=== PATIENT | male | born 1975 | race African-American/Black ===

== ENCOUNTER 2021-09-15 12:26 | Emergency (ER) | payer OTHER ==
[~2021-09-15] VITALS: Ht 190.5 cm; Wt 181.4 kg
--- NOTE | 2021-09-15 12:44 | NUR ---
SHARON FLORES FROM [facility] ,VERBALIZED HE WANTS TO HURT HIMSELF, NO PLAN AT THIS TIME. PT SENT TO ER BED 12 WITH 1:1 SITTER
[2021-09-15 13:23] LABS: BASOPHILS % (AUTO) 0.5 % (0.0-2.0); EOSINOPHILS % (AUTO) 1.1 % (0.0-6.0); HEMATOCRIT 42 % (39-51); HEMOGLOBIN 13.4 g/dL (13.5-17.5); LYMPHOCYTES # (AUTO) 1.5 K/uL (0.8-4.8); LYMPHOCYTES % (AUTO) 38.2 % (20.0-44.0); MEAN CORPUSCULAR HGB CONC 32 g/dl (31.0-36.0); MEAN CORPUSCULAR VOLUME 91 fL (80-96); MONOCYTES # (AUTO) 0.3 K/uL (0.1-1.30); MONOCYTES % (AUTO) 8.4 % (2.0-12.0); NEUTROPHILS % (AUTO) 51.8 % (43.0-81.0); PLATELET COUNT (AUTO) 169 K/uL (150-450); RED BLOOD CELL COUNT(AUTO) 4.59 MIL/uL (4.5-6.0); WHITE BLOOD COUNT (AUTO) 3.9 K/uL (4.3-11.0)
[2021-09-15 13:38] LABS: CARBON DIOXIDE 28 mmol/L (21-32); CHLORIDE 103 mmol/L (98-107); CREATININE 1.1 mg/dL (0.6-1.3); GLUCOSE 90 mg/dL (74-106); POTASSIUM 4.4 mmol/L (3.5-5.1); SODIUM SERUM 138 mmol/L (136-145); UREA NITROGEN, BLOOD 13 mg/dL (7-18)
[2021-09-15 13:45] LABS: ALANINE AMINOTRANSFERASE 23 U/L (12-78); ALBUMIN 3.6 g/dL (3.4-5.0); ALCOHOL, BLOOD < 3 mg/dL (0-0); ALKALINE PHOSPHATASE 73 U/L (46-116); ASPARTATE AMINOTRANSFERASE 18 U/L (15-37); BILIRUBIN,DIRECT 0.1 mg/dL (0.0-0.2); BILIRUBIN,TOTAL 0.7 mg/dL (0.2-1.0); TOTAL PROTEIN, SERUM 7.4 g/dL (6.4-8.2)
[2021-09-15 13:50] LABS: ACETAMINOPHEN 0 ug/ml (10-30)
[2021-09-15 14:27] LABS: BILIRUBIN,URINE NEGATIVE (NEGATIVE); COLOR,URINE YELLOW (YELLOW); LEUKOCYTE ESTERASE ,URINE NEGATIVE (NEGATIVE); NITRITE, URINE POSITIVE (NEGATIVE); PH,URINE 6.5 (5.0-8.0); PROTEIN,URINE NEGATIVE (NEGATIVE); UGLUCOSE NEGATIVE (NEGATIVE); UROBILINOGEN,URINE 0.2 EU/dL (0.2)
[2021-09-15] MEDS ORDERED: CEFTRIAXONE 1 G in IV D5W 50 ML IV ONE (15:00)
[2021-09-15 15:01] LABS: BACTERIA,URINE None seen /HPF (None Seen); RBC,URINE NONE SEEN /HPF (0-2); SQUAMOUS EPITHELIAL CELL,UR 0-2 /HPF (None Seen); WBC,URINE NONE SEEN /HPF (0-3)
[2021-09-15] MEDS ORDERED: CEPHALEXIN MONOHYDRATE 500 MG CAPSULE PO ONE ×2 (15:30→15:34)
--- NOTE | 2021-09-15 16:10 | NUR ---
[facility] Hospital referral: ANNETTA called [facility] [address] [place] [address]; Unit TEL: [phone] and spoke to Helena from intake and she stated to fax clinicals to Intake and they need PCR . ANNETTA faxed clinicals and notified sonido in ED that PCR is required for admission.
--- NOTE | 2021-09-15 16:58 | NUR ---
ANNETTA received call from Mamta Smith who stated the pt. was not accepted. ANNETTA called and spoke to chucking and boring machine operator, Felicita who is agreeable to evaluate this patient. ANNETTA notified RNBrittany.
[2021-09-15] MEDS ORDERED: RIVAROXABAN 15 MG TABLET PO SCH ×2 (17:00→20:00)
--- NOTE | 2021-09-15 18:10 | NUR ---
Patient is no longer on a hold. Patient needs assistance with linkage to senior care and possbile housing. patient's will meet with horticultural farmworker in the morning to get assistance with senior care and housing. Patient's clinicals have also being faxed to [facility] for possible admission. Patient is free to go if he does not want any of the options provided.
--- NOTE | 2021-09-15 21:48 | NUR ---
COVID ANTIGEN SWAB COLLECTED AND SENT TO LAB
--- NOTE | 2021-09-15 23:09 | NUR ---
CALL FROM ANISA THORNE. UNABLE TO ACCEPT PT.
[2021-09-16] MEDS ORDERED: ACETAMINOPHEN 325 MG TABLET ONE ×2 (05:59→11:00)
[2021-09-16] MEDS ORDERED: ACETAMINOPHEN 325 MG TABLET PO ONE ×2 (06:00→11:00)
--- NOTE | 2021-09-16 06:00 | NUR ---
PT AMBULATORY TO RESTROOM WITH CANE; STEADY GAIT NOTED. ADLS DONE.
--- NOTE | 2021-09-16 06:04 | NUR ---
PT COMPLAINED OF ONEIL LEG PAIN. TYLENOL GIVEN ORDERED.
--- NOTE | 2021-09-16 08:00 | NUR ---
THE PATIENT IS RECEIVED IN ER BED #12. THE PATIENT IS ALERT AND ORIENTED X4. DENIES PAIN. IN ROOM AIR AND DENIES SOB. RESPIRATION REGULAR AND UNLABORED. THE PATIENT STATED HE WANTS TO HARM HIMSELF WITH NO PLAN. DENIES HI. DENIES HAVING HALLUCINATION. SITTER AT THE BEDSIDE.
--- NOTE | 2021-09-16 09:12 | NUR ---
THE PATIENT IS ALERT AND ORIENTED X4. DENIES HAVING SI OR HI. DENIES HAVING HALLUCINATIONS. STATES HE WANTS TO SEE NUCLEAR ENGINEERING TECHNICIAN FOR ALF PLACEMENT.
[2021-09-16] MEDS ORDERED: ALBU18HF2 INH (10:31)
[2021-09-16] MEDS ORDERED: ALBUTEROL FS 2.5 MG/0.5 ML VIAL.NEB ONE (10:47)
[2021-09-16] MEDS ORDERED: ALBUTEROL SULFATE 8 GM HFA.AER.AD IH ONE (11:00)
[2021-09-16] MEDS ORDERED: IBUPROFEN 600 MG TABLET PO ONE (11:00)
[2021-09-16] MEDS ORDERED: IBUPROFEN 600 MG TABLET ONE (11:01)
--- NOTE | 2021-09-16 11:38 | NUR ---
PATIENT WAS PROVIDED WITH RESOURCES FROM SOCIAL WORKERS, PROVIDED WITH LUNCH, AND DISCHARGED IN STABLE CONDITION.
[2021-09-16 11:43] VITALS: BP 138/84
--- NOTE | 2021-09-16 15:14 | NUR ---
SS Note: Pt. Is a 45-year-old Black male who demonstrates no insight to the reason for hospitalization. Pt. was living at transitional housing facility and got into argument with the residents was put on a 5150 hold by [employer]. Pt. was oriented x4, alert, and not cooperative. During interview, pt. appeared groomed, pt.s speech was at a normal rate and pt.s mood was irritable. Pt. reported no substance abuse but per EMR, pt. was positive for Amphetamine and Marijuana. Pt. denies auditory hallucinations, visual hallucinations, paranoia, or delusions. Pt. is manipulative and tend to make suicidal claim and yet told Felicita GALAN I never was suicidal." shield runner, Felicita, came to evaluate pt. and clinician determined he did not meet criteria for a psychiatric hold and the hold was broken. Pt. reports he wants to be referred to a mcfp to get section 8 housing. Pt. keeps threatening that he will hurt himself if housing or a referral for section 8 resources is not provided to him. Per clinician note, during evaluation pt. reported he did not want to hurt himself and never was suicidal ANNETTA contacted [facility] [[phone]] and spoke with Kwesi from intake there. Per Kwesi, pt. could come for intake before 1pm. Kwesi stated that pt. could come for an intake via taxi, but a mcfp was not guaranteed today. Patient was informed of this prior to discharge. Plan: ANNETTA provided available resources and pt. accepted. Upon discharge, pt. will be going to [facility] [[facility] [address] [place] [address]. Tele: [phone]] via taxi for intake. Kwesi from [facility] was informed and was expecting the patient. Resources Provided: Winter Shelters: SPA 2 | [facility] Felixder: [facility] [place] Address: Confidential (call for location ) Population Served: Coed # of Beds: 57 SPA 4 | [facility] Provider: Home at Last Address: [address] [address] # of Beds: 49 Population Served: Coed SPA 6 | [facility] Provider: Home at Last Address: [address] [facility] [address] # of Beds: 49 Population Served: Kathe Valdez [facility]om[facility] Half-Way Provider: Brayan COLEY Address: [address] [facility] [address] # of Beds: 20 Population Served: Women [facility] Facility Provider: Home at Last Address: [address] [facility] [address] # of Beds: 30 Population Served: Women SPA 8 | [facility] Provider: [facility] [place] Address: [address] [address] # of Beds: 65 Population Served: Kathe Year-round shelters: [place] [address] [place] [place] [address] ; [facility] [place] [address] [place] [address]; [place] [facility] Ehanccw[address]8 [facility] [id number] Winter Shelters: Vane [place] Provider: [facility] Address: [address] [facility], [address] # of Beds: 47 Population Served: Coed SPA 6 | [facility] Lizbeth Ponce [place] Provider: Home at Last Address: [address], [address] # of Beds: 66 Population Served: Kathe [place] Provider: First to Serve Address: [address] [facility], [address] # of Beds: 56 Population Served: Mariannd Sina [place] Provider: [facility] Address: [address] [facility], [address] # of Beds: 49 Population Served: Coed SPA 8 | [facility] Provider: First to Serve Address: [address] [facility], [address] # of Beds: 37 Population Served: Coed Hygiene: [facility]: [address] [address]. [place] ; [facility] [address] [facility] ; [facility] [address] [place] . Food Resources: [place] [facility] at [facility]- [address] [place]; Meet Each Need with Dignity ([facility]) [address] [facility]ron [place]; [facility] Food Pantry [address] [facility]; [facility] [address] [facility]. Mental Health resources provided: [facility] [address] [place], [place] [id number] ; [facility] [address] [facility] [address], [place], [place] [id number] ; [facility] [address] [facility] [place], [place] [phone] ; [facility] [address] [place], [place] [id number] Healthcare Clinics: [facility] [address] [facility], [address] [place]. [place] ; [facility] [address] [facility] [address] [place] [address]; [facility] [address] [facility]. [place] [phone] Counseling--Outpatient [facility] [address] [facility], [place] [address] (Specializes in in-depth psychotherapy for emotional distress: anxiety, depression, interpersonal conflicts, life transitions, childhood abuse) [facility] [address] [place] [address] (Assist with solving problem marital difficulties, separation & divorce, aging parents, & grief, chronic & terminal illness) [facility] [address] [place] [address] (Deal with loss & grief, anxiety, marital difficulties) Homebound/Mental Health Services [address], [address] [place] [address] (Provide in-home mental services to people who are incapable of leaving their homes) [facility] of the Elderly Senior Service/Resource Center [address] [place], [place] [phone] [facility] [address]. [facility] [place] [address] PSYCHIATRIC OUTPATIENT SERVICES [facility] Partial Hospitalization and Intensive Outpatient Program (Managed Care and [place] Only)[address]. [facility] [phone] [facility] Partial Hospitalization and Outpatient Koynpvt[address] [place], [place] [phone] [facility] Mental Health [place] Chg15544 Monchoangelina [facility]. [address] [place], [place] [phone] [facility] Partial Hospitalization and Outpatient Okhbvea29083 [facility] CenterjaydenDEER [place], [phone] Substance Abuse resources provided included: [facility] Substance Abuse Self-Helpline ([facility]) ; CRI -HELP [address] [facility]. [place] [address] ; [facility] [address] [facility] [address] ; [facility] [address] [facility] [address] ; [facility] [address] [facility] [address] ; [facility] 4940 [facility] [address] ; [facility] [address] [facility] [phone] ; [facility] Substance Abuse Helpline(SASH)-[facility] ; [facility] ; [place]; [facility]; Cri-Help [place]; I-ADARP [facility] Jerry Raglandjayden; [place] [facility]; [facility]; [facility]; [facility], [facility]. [place]; Alcoholics Anonymous -SFV; Wi-Vzby-Prbfxop ; Marijuana Anonymous -SFV; Narcotics Anonymous [email or web address];
== END 2021-09-16 11:44 | disposition home or self-care (01) ==
LOC: ER 12:27
DX: R45.851 Suicidal ideations (principal); I82.501 Chronic embolism and thrombosis of unspecified deep veins of right lower extremity; Z79.01 Long term (current) use of anticoagulants; N39.0 Urinary tract infection, site not specified; I10 Essential (primary) hypertension; E11.9 Type 2 diabetes mellitus without complications; J45.909 Unspecified asthma, uncomplicated; Z53.29 Procedure and treatment not carried out because of patient's decision for other reasons; Z20.822 Contact with and (suspected) exposure to COVID-19; Z59.00 Homelessness unspecified; F19.10 Other psychoactive substance abuse, uncomplicated
CPT/HCPCS: 36415; 80048; 80076; 80143; 80307; 80320; 81001; 85025; 87086; 87426; 93970; 94640; 99285; C9803; J0696; J7060; G0480